=== PATIENT | male | born 1950 | race Caucasian/White ===

== ENCOUNTER → 2019-07-11 10:24 | Outpatient (BNVA) | payer MEDICARE, SELFPAY | PROVIDERS: Family Provider Family Medicine; PCP Family Medicine; Visit Provider Family Medicine | DX: R35.1 Nocturia (principal); Z13.6 Encounter for screening for cardiovascular disorders | CPT/HCPCS: 80053; 80061; 84153; 85025 ==

== ENCOUNTER → 2021-10-06 09:53 | Outpatient (BNVA) | payer MEDICARE, SELFPAY | PROVIDERS: Family Provider Family Medicine; PCP Family Medicine; Visit Provider Family Medicine | DX: Z13.6 Encounter for screening for cardiovascular disorders (principal); R35.1 Nocturia | CPT/HCPCS: 80053; 80061; 84153; 85025 ==

== ENCOUNTER 2022-01-11 10:03 | Emergency (ER) | payer MEDICARE, SELFPAY ==
[2022-01-11] VITALS (7 sets, daily range): BP systolic 110–133; BP diastolic 74–90; PULSE 59–84; RESP 14–18; TEMP 36.7; O2SAT 96–99; BMI 25.0
--- NOTE | 2022-01-11 10:27 | ECG_ITS ---
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 Measurements Intervals [place] Rate: 72 P: 61 IN: 172 QRS: 72 QRSD: 84 T: 74 QT: 324 QTc: 355 Interpretive Statements SINUS RHYTHM NONSPECIFIC T-WAVE ABNORMALITY INTERPRETATION BASED ON A DEFAULT AGE OF 40 YEARS No previous ECG available for comparison Electronically Signed On 01-11-2022 19:10:13 CDT by Puneet Baer M.D. [email or web address]
--- NOTE | 2022-01-11 10:41 | XRR_ITS ---
PROCEDURE INFORMATION: Exam: XR Chest Exam date and time: 01/11/2022 10:50 AM Age: 71 years old Clinical indication: Shortness of breath and other: N/v, light headed, cant stand; Additional info: Dyspnea/cough TECHNIQUE: Imaging protocol: Radiologic exam of the chest. Views: 1 view. COMPARISON: CT kidney stone [id number] 02/14/2017 2:09 AM FINDINGS: Lungs: The lung parenchyma is clear. Pleural spaces: No pneumothorax. No pleural effusion. Heart/Mediastinum: The cardiomediastinal silhouette is within normal limits. Bones/joints: Unremarkable. XR/XR chest 1V portable [id number] IMPRESSION: No acute cardiopulmonary abnormality.
--- NOTE | 2022-01-11 10:41 | PC.NURSE ---
Reports was making breakfast this morning when he began to feel lightheaded, weak, and short of breath. Denies chest pain. Reports similar occurrence last week on where he denies seeking medical treatment. Reports he does not have any past medical history and does not take any routine medications. Pt A&Ox4, lung sounds clear bilat, heart sounds normal, bowel sounds present, abdomen soft and nontender to palpation. Skin pink/warm/dry. Family reports pt has not had much hydration lately.
[2022-01-11 11:04] LABS: Basophils # 0.1 10^3/uL (0.0-0.1); Basophils % 1.2 %; Hematocrit 46.1 % (42.0-52.0); Lymphocytes # 5.3 10^3/uL (0.8-4.8); Lymphocytes % 57.4 %; Mean Corpuscular HGB Conc 34.7 g/dL (30.0-36.0); Mean Corpuscular Hemoglobin 31.4 pg (28.0-34.0); Mean Corpuscular Volume 90.6 fl (80-94); Mean Platelet Volume 9.6 fL (7.4-10.4); Monocytes # 0.9 10^3/uL (0.2-0.9); Monocytes % 9.8 %; Neutrophils # 2.88 10^3/uL (1.8-7.7); Neutrophils % 31.5 %; Nucleated Red Blood Cells % 0 %; Platelet Count 139 10^3/cmm (130-400); Red Blood Count 5.09 10^6/uL (4.1-5.3); Red Cell Distribution Width 12.1 % (12.1-15.1); White Blood Count 9.2 10^3/uL (4.0-10.0)
[2022-01-11 11:27] LABS: Alanine Aminotransferase 61 U/L (0-41); Alkaline Phosphatase 77 IU/L (40-130); Anion Gap 15.8 (5-19); Aspartate Amino Transferase 33 U/L (0-40); Blood Urea Nitrogen 15 mg/dL (8-23); Calcium 10.4 mg/dL (8.5-10.5); Carbon Dioxide 22 mmol/L (22-29); Chloride 106 mmol/L (98-107); Globulin 2.9 g/dL (1.3-4.6); Glucose 100 mg/dL (65-115); Osmolality Calculated 291 mOsm/kg (285-295); Potassium 3.8 mmol/L (3.5-5.1); Sodium 140 mmol/L (136-145); Total Bilirubin 0.8 mg/dL (0.15-1.2); Total Protein 6.9 g/dL (6.6-8.7)
[2022-01-11 11:32] LABS: Slide Review Slide Review Perform
[2022-01-11 11:48] LABS: Add Urine Microscopic? NO; Charge for UA Resulting for Rev
[2022-01-11 11:50] LABS: Bilirubin Urine Neg (Negative); Blood Urine Neg (Negative); Glucose Urine UA Norm (Normal); Ketones Urine Negative (Negative); Leukocyte Esterase Urine Negative (Negative); Nitrate Urine Negative (Negative); Protein Urine Neg (Negative); Urine Appearance Clear (CLEAR); Urine Color Dark Yellow (Yellow); Urobilinogen Urine Norm (Negative); pH Urine 5 (5-7)
--- NOTE | 2022-01-11 12:22 | W.ED.WEAKNES ---
HPI - Weakness General: Chief complaint: Weakness Stated complaint: sob, faint, trouble standing Time Seen by Provider: 01/11/22 10:09 Source: patient Mode of arrival: ambulatory History of Present Illness: 71-year-old male presents to the emergency room with complaint of generalized weakness feeling short of breath and faint at times. He is actually had a couple of episodes like this he will be standing for period of time he will get weak little short of breath lightheaded and dizzy and feel like he is going to pass out never completely lost consciousness and never gets any chest pain. Not had any vomiting or diarrhea with it. He has a history of rheumatoid arthritis but otherwise his evaluation is essentially negative his history is unremarkable he does not smoke or drink he does not have any history of heart disease he has never had any evaluation. MD Complaint: generalized weakness Onset (ago): hour(s) Duration: intermittent Severity: mild Relieving factors: none Exacerbating factors: none Associated symptoms: Denies chest pain, chills, confusion, melena, decreased appetite, diaphoresis, dysuria, easy bruising, fever(s), headache(s), myalgias, nausea, rash, short of breath, syncope or vomiting Review of Systems Const: Denies: fever(s), chills, fatigue, malaise or diaphoresis ENMT: Denies: throat pain, ear or mastoid pain, nasal discharge or nasal congestion Card: Reports: pre-syncope; Denies: chest pain, palpitations, edema or syncope Resp: Reports: dyspnea (Intermittent brief); Denies: productive cough or non-productive cough GI: Denies: abdominal pain, nausea, vomiting or melena : Denies: flank pain, difficulty urinating, dysuria, urinary frequency or urinary urgency Skin/Breast: Denies: rash or pruritus Neuro: Denies: headache(s) or confusion Moses/Lymph: Denies: easy bruising PFSH ED PFSH: Medical History Rheumatoid arthritis involving both hands with positive rheumatoid factor [place] spotted fever Surgical History H/O cataract extraction H/O thumb surgery Family History Sister Cancer colon Diabetes Father CAD (coronary artery disease) Social History Smoking and tobacco status: never smoked Alcohol intake: current Alcohol type: wine Physical Exam Const: COMMON NORMALS: no acute distress GENERAL APPEARANCE: cooperative and comfortable ORIENTATION/CONSCIOUSNESS: Yes awake, Yes oriented to person, Yes oriented to place and Yes oriented to time HENMT: COMMON NORMALS: normocephalic, atraumatic and hearing grossly normal bilaterally HEAD & SCALP: normocephalic and atraumatic Resp: COMMON NORMALS: normal respiratory effort, No retractions, No use of accessory muscles and clear to auscultation bilaterally AUSCULTATION: clear to auscultation bilaterally Cardio: COMMON NORMALS: regular rate, regular rhythm and No murmurs present (Cardio) RATE: regular rate RHYTHM: regular rhythm GI: COMMON NORMALS: Soft to palpation and No hepatosplenomegaly present AUSCULTATION: Yes normoactive bowel sounds PALPATION: Yes Soft to palpation, No Tenderness to palpation present (GI), No Guarding due to palpation present (GI) and Yes No hepatosplenomegaly present Extremity: COMMON NORMALS: normal to inspection, capillary refill normal, no clubbing, cyanosis or edema, no calf tenderness and no pedal edema Neuro: SENSORIUM/ORIENTATION: Yes oriented to person, Yes oriented to place and Yes oriented to time Skin: COMMON NORMALS: no rashes or lesions noted GENERAL SKIN EXAM: no rashes or lesions noted Course Vital Signs: Vital signs: Vital Signs Temperature 98.0 F 01/11/22 10:14 Pulse Rate 66 01/11/22 12:16 Respiratory Rate 18 01/11/22 12:16 Blood Pressure 120/82 01/11/22 12:16 Pulse Oximetry 96 01/11/22 12:16 Oxygen Delivery Me thod 01/11/22 10:14 MDM - Weakness Medical Decision Making Patient is asymptomatic this time he feels fine interestingly has had a couple of these episodes. He is not having any chest pain. EKG was unremarkable no acute ST changes noted may be some early LVH. Other labs unremarkable organ to go and discharge patient home set him up for a 48-hour Holter and an echocardiogram as well as an outpatient Lexiscan sestamibi stress test Medical Records I reviewed the patient's medical records. Lab Data I reviewed the patient's lab results. : 01/11/22 10:50 01/11/22 10:50 Radiology Impressions Chest X-Ray 01/11/22 10:41 IMPRESSION: No acute cardiopulmonary abnormality. Laboratory Results WBC 9.2 10^3/uL (4.0-10.0) 01/11/22 10:50 RBC 5.09 10^6/uL (4.1-5.3) 01/11/22 10:50 Hgb 16.0 g/dL (11.7-16.6) 01/11/22 10:50 Hct 46.1 % (42.0-52.0) 01/11/22 10:50 MCV 90.6 fl (80-94) 01/11/22 10:50 MCH 31.4 pg (28.0-34.0) 01/11/22 10:50 MCHC 34.7 g/dL (30.0-36.0) 01/11/22 10:50 RDW 12.1 % (12.1-15.1) 01/11/22 10:50 Plt Count 139 10^3/cmm (130-400) 01/11/22 10:50 MPV 9.6 fL (7.4-10.4) 01/11/22 10:50 Neut % (Auto) 31.5 % 01/11/22 10:50 Lymph % (Auto) 57.4 % 01/11/22 10:50 Piatt % (Auto) 9.8 % 01/11/22 10:50 Eos % (Auto) 0.0 % 01/11/22 10:50 Baso % (Auto) 1.2 % 01/11/22 10:50 Neut # (Auto) 2.88 10^3/uL (1.8-7.7) 01/11/22 10:50 Lymph # (Auto) 5.3 10^3/uL (0.8-4.8) H 01/11/22 10:50 Piatt # (Auto) 0.9 10^3/uL (0.2-0.9) 01/11/22 10:50 Eos # (Auto) 0.0 10^3/uL (0.0-0.8) 01/11/22 10:50 Baso # (Auto) 0.1 10^3/uL (0.0-0.1) 01/11/22 10:50 Nucleated RBC % (auto) 0 % 01/11/22 10:50 Nucleated RBCs # 0.0 /100WBC 01/11/22 10:50 Sodium 140 mmol/L (136-145) 01/11/22 10:50 Potassium 3.8 mmol/L (3.5-5.1) 01/11/22 10:50 Chloride 106 mmol/L (98-107) 01/11/22 10:50 Carbon Dioxide 22 mmol/L (22-29) 01/11/22 10:50 Anion Gap 15.8 (5-19) 01/11/22 10:50 BUN 15 mg/dL (8-23) 01/11/22 10:50 Creatinine 1.1 mg/dL (0.7-1.2) 01/11/22 10:50 GFR Calculation Not Reportable 01/11/22 10:50 Glucose 100 mg/dL (65-115) 01/11/22 10:50 Calculated Osmolality 291 mOsm/kg (285-295) 01/11/22 10:50 Calcium 10.4 mg/dL (8.5-10.5) 01/11/22 10:50 Total Bilirubin 0.8 mg/dL (0.15-1.2) 01/11/22 10:50 AST 33 U/L (0-40) 01/11/22 10:50 ALT 61 U/L (0-41) H 01/11/22 10:50 Alkaline Phosphatase 77 IU/L (40-130) 01/11/22 10:50 Troponin T Gen 5 ng/L 13 ng/L (0-15) 01/11/22 10:50 Total Protein 6.9 g/dL (6.6-8.7) 01/11/22 10:50 Albumin 4.0 g/dL (3.5-5.2) 01/11/22 10:50 Globulin 2.9 g/dL (1.3-4.6) 01/11/22 10:50 Urine Color Dark yellow (Yellow) 01/11/22 11:40 Urine Appearance Clear (CLEAR) 01/11/22 11:40 Urine pH 5 (5-7) 01/11/22 11:40 Ur Specific [place] 1.020 (1.005-1.030) 01/11/22 11:40 Urine Protein Neg (Negative) 01/11/22 11:40 Urine Glucose (UA) Norm (Normal) 01/11/22 11:40 Urine Ketones Negative (Negative) 01/11/22 11:40 Urine Blood Neg (Negative) 01/11/22 11:40 Urine Nitrate Negative (Negative) 01/11/22 11:40 Urine Bilirubin Neg (Negative) 01/11/22 11:40 Urine Urobilinogen Norm mg/dL (Negative) 01/11/22 11:40 Ur Leukocyte Esterase Negative (Negative) 01/11/22 11:40 Discharge Plan Discharge Patient Disposition: Home Clinical Impression: Pre-syncope Condition: Stable Prescriptions: New aspirin 81 mg tablet,delayed release (DR/EC) 81 mg PO DAILY Qty: 30 0RF Discharge Orders: Discharge ED (Routine); Ordered 01/11/22 Ordered By: Sumeet Gibbs Referrals: Argentina Izquierdo DO [Primary Care Provider] - Discharge Diet: Usual diet Discharge Activity: Limit activity as instructed Patient Instructions: Opioid Safety Activity Restrictions/Additional Instructions: Avoid exertional activity. Case management make arrangements for you to have an echocardiogram and a 24-hour Holter. 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
[2022-01-11 12:38] LABS: Troponin T (5th) Once 13 ng/L (0-15)
--- NOTE | 2022-01-14 08:13 | DCPLANNER ---
Addendum entered by Nanette Bae 02/27/22 12:42: Patient had an appointment for a halter monitor - patient did attend appointment. Original Note: fleet dispatch manager had message to schedule an out patient halter monitor. fleet dispatch manager faxed signed order to heart care, who will call patient with appointment information. fleet dispatch manager had message to schedule an out patient echo cardiogram and stress test for patient. fleet dispatch manager faxed a signed order to centralized scheduling, who will call patient with appointment information.
== END 2022-01-11 12:18 | disposition home or self-care (01) ==
PROVIDERS: Emergency Provider Family Medicine; PCP Family Medicine
DX: R55 Syncope and collapse (principal)
CPT/HCPCS: 71045; 80053; 81003; 84484; 85025; 93005; 99285

== ENCOUNTER → 2022-01-26 14:04 | Outpatient (BNVA) | payer MEDICARE, SELFPAY | PROVIDERS: PCP Family Medicine; Visit Provider Internal Medicine | DX: R55 Syncope and collapse (principal); I47.1 Supraventricular tachycardia; I49.1 Atrial premature depolarization; I49.3 Ventricular premature depolarization | CPT/HCPCS: 93225 ==

== ENCOUNTER → 2022-02-16 11:20 | Outpatient (BNVA) | payer MEDICARE, SELFPAY | PROVIDERS: PCP Family Medicine; Referring Provider Family Medicine; Visit Provider Internal Medicine | DX: M05.741 Rheumatoid arthritis with rheumatoid factor of right hand without organ or systems involvement (principal); M05.742 Rheumatoid arthritis with rheumatoid factor of left hand without organ or systems involvement; Z11.59 Encounter for screening for other viral diseases; Z11.1 Encounter for screening for respiratory tuberculosis | CPT/HCPCS: 80053; 85025; 85651; 86140; 86480; 86704; 86803; 87340; 99204 ==

== ENCOUNTER → 2022-03-10 15:17 | Outpatient (BNVA) | payer MEDICARE, SELFPAY | PROVIDERS: PCP Family Medicine; Visit Provider Internal Medicine | DX: M05.741 Rheumatoid arthritis with rheumatoid factor of right hand without organ or systems involvement (principal); M05.742 Rheumatoid arthritis with rheumatoid factor of left hand without organ or systems involvement | CPT/HCPCS: 99213; 99214 ==

== ENCOUNTER 2022-04-06 11:07 | Outpatient (CLI) | payer MEDICARE, SELFPAY ==
[2022-04-06 11:33] LABS: Basophils # 0.1 10^3/uL (0.0-0.1); Eosinophils % 0.1 %; Hematocrit 47.2 % (42.0-52.0); Hemoglobin 16.5 g/dL (11.7-16.6); Lymphocytes # 1.8 10^3/uL (0.8-4.8); Lymphocytes % 22.2 %; Mean Corpuscular Volume 94.4 fl (80-94); Mean Platelet Volume 9.1 fL (7.4-10.4); Monocytes # 0.6 10^3/uL (0.2-0.9); Monocytes % 7.5 %; Neutrophils # 5.44 10^3/uL (1.8-7.7); Neutrophils % 68.9 %; Nucleated Red Blood Cells % 0 %; Platelet Count 211 10^3/cmm (130-400); Red Cell Distribution Width 12.5 % (12.1-15.1); White Blood Count 7.9 10^3/uL (4.0-10.0)
[2022-04-06 11:54] LABS: Alanine Aminotransferase 33 U/L (0-41); Alkaline Phosphatase 82 U/L (40-130); Anion Gap 13.2 (5-19); Aspartate Amino Transferase 28 U/L (0-40); Blood Urea Nitrogen 13 mg/dL (8-23); Calcium 9.8 mg/dL (8.5-10.5); Carbon Dioxide 21 mmol/L (22-29); Chloride 107 mmol/L (98-107); Globulin 2.8 g/dL (1.3-4.6); Glucose 89 mg/dL (65-115); Osmolality Calculated 284 mOsm/kg (285-295); Potassium 4.2 mmol/L (3.5-5.1); Sodium 137 mmol/L (136-145); Total Bilirubin 0.3 mg/dL (0.15-1.2); Total Protein 6.8 g/dL (6.6-8.7)
== END 2022-04-06 11:08 | disposition home or self-care (01) ==
PROVIDERS: PCP Family Medicine; Visit Provider Internal Medicine
DX: M05.741 Rheumatoid arthritis with rheumatoid factor of right hand without organ or systems involvement (principal); M05.742 Rheumatoid arthritis with rheumatoid factor of left hand without organ or systems involvement
CPT/HCPCS: 36415; 80053; 85025

== ENCOUNTER 2022-06-01 10:20 | Outpatient (CLI) | payer MEDICARE, SELFPAY ==
[2022-06-01 11:44] LABS: Basophils # 0.1 10^3/uL (0.0-0.1); Basophils % 1.5 %; Hematocrit 50.7 % (42.0-52.0); Lymphocytes # 2.4 10^3/uL (0.8-4.8); Lymphocytes % 35.7 %; Mean Corpuscular HGB Conc 33.5 g/dL (30.0-36.0); Mean Corpuscular Hemoglobin 32.1 pg (28.0-34.0); Mean Corpuscular Volume 95.7 fl (80-94); Mean Platelet Volume 9.5 fL (7.4-10.4); Monocytes # 0.6 10^3/uL (0.2-0.9); Monocytes % 8.5 %; Neutrophils # 3.56 10^3/uL (1.8-7.7); Neutrophils % 54.1 %; Nucleated Red Blood Cells % 0 %; Platelet Count 227 10^3/cmm (130-400); White Blood Count 6.6 10^3/uL (4.0-10.0)
[2022-06-01 12:05] LABS: Alanine Aminotransferase 27 U/L (0-41); Albumin Level 3.8 g/dL (3.5-5.2); Alkaline Phosphatase 90 U/L (40-130); Blood Urea Nitrogen 16 mg/dL (8-23); Calcium 10.2 mg/dL (8.5-10.5); Carbon Dioxide 24 mmol/L (22-29); Chloride 104 mmol/L (98-107); Globulin 3.2 g/dL (1.3-4.6); Glucose 106 mg/dL (65-115); Osmolality Calculated 284 mOsm/kg (285-295); Sodium 136 mmol/L (136-145); Total Bilirubin 0.6 mg/dL (0.15-1.2)
[2022-06-01 12:09] LABS: Aspartate Amino Transferase 27 U/L (0-40)
== END 2022-06-01 10:21 | disposition home or self-care (01) ==
PROVIDERS: PCP Family Medicine; Visit Provider Internal Medicine
DX: M05.741 Rheumatoid arthritis with rheumatoid factor of right hand without organ or systems involvement (principal); M05.742 Rheumatoid arthritis with rheumatoid factor of left hand without organ or systems involvement; R35.1 Nocturia
CPT/HCPCS: 80053; 85025

== ENCOUNTER → 2022-06-12 09:59 | Outpatient (BNVA) | payer MEDICARE, SELFPAY | PROVIDERS: PCP Family Medicine; Visit Provider Internal Medicine | DX: M05.741 Rheumatoid arthritis with rheumatoid factor of right hand without organ or systems involvement (principal); M05.742 Rheumatoid arthritis with rheumatoid factor of left hand without organ or systems involvement; Z79.899 Other long term (current) drug therapy | CPT/HCPCS: 99213 ==

== ENCOUNTER 2022-09-02 08:26 | Outpatient (CLI) | payer MEDICARE, SELFPAY ==
[2022-09-02 08:59] LABS: Basophils # 0.1 10^3/uL (0.0-0.1); Basophils % 1.5 %; Hematocrit 48.3 % (42.0-52.0); Hemoglobin 16.5 g/dL (11.7-16.6); Lymphocytes % 36.5 %; Mean Corpuscular HGB Conc 34.2 g/dL (30.0-36.0); Mean Corpuscular Volume 93.6 fl (80-94); Mean Platelet Volume 9.3 fL (7.4-10.4); Monocytes # 0.7 10^3/uL (0.2-0.9); Neutrophils # 4.25 10^3/uL (1.8-7.7); Neutrophils % 52.6 %; Nucleated Red Blood Cells % 0 %; Platelet Count 221 10^3/cmm (130-400); Red Blood Count 5.16 10^6/uL (4.1-5.3); Red Cell Distribution Width 12.2 % (12.1-15.1); White Blood Count 8.1 10^3/uL (4.0-10.0)
[2022-09-02 09:03] LABS: Erythrocyte Sedimentation Rate 7 mm/hr (0-10)
[2022-09-02 09:23] LABS: Alanine Aminotransferase 18 U/L (0-41); Alkaline Phosphatase 68 U/L (40-130); Anion Gap 12.5 (5-19); Aspartate Amino Transferase 19 U/L (0-40); Blood Urea Nitrogen 12 mg/dL (8-23); Carbon Dioxide 25 mmol/L (22-29); Chloride 109 mmol/L (98-107); Globulin 2.8 g/dL (1.3-4.6); Glucose 78 mg/dL (65-115); Osmolality Calculated 293 mOsm/kg (285-295); Potassium 4.5 mmol/L (3.5-5.1); Sodium 142 mmol/L (136-145); Total Bilirubin 0.6 mg/dL (0.15-1.2); Total Protein 6.8 g/dL (6.6-8.7)
== END 2022-09-02 08:27 | disposition home or self-care (01) ==
LOC: LAB 08:31
PROVIDERS: Internal Medicine; PCP Family Medicine; Visit Provider Urology
DX: M05.741 Rheumatoid arthritis with rheumatoid factor of right hand without organ or systems involvement (principal); M05.742 Rheumatoid arthritis with rheumatoid factor of left hand without organ or systems involvement
CPT/HCPCS: 36415; 80053; 85025; 85651; 86140

== ENCOUNTER → 2022-09-15 12:58 | Outpatient (BNVA) | payer MEDICARE, SELFPAY | PROVIDERS: PCP Family Medicine; Visit Provider Internal Medicine | DX: M05.741 Rheumatoid arthritis with rheumatoid factor of right hand without organ or systems involvement (principal); M05.742 Rheumatoid arthritis with rheumatoid factor of left hand without organ or systems involvement; Z79.899 Other long term (current) drug therapy | CPT/HCPCS: 99214 ==

== ENCOUNTER 2023-01-14 08:58 | Outpatient (CLI) | payer MEDICARE, SELFPAY ==
[2023-01-14 09:20] LABS: Erythrocyte Sedimentation Rate 10 mm/hr (0-10)
[2023-01-14 09:24] LABS: Basophils # 0.1 10^3/uL (0.0-0.1); Basophils % 1.1 %; Hematocrit 49.3 % (42.0-52.0); Hemoglobin 16.9 g/dL (11.7-16.6); Lymphocytes # 3.5 10^3/uL (0.8-4.8); Lymphocytes % 39.1 %; Mean Corpuscular HGB Conc 34.3 g/dL (30.0-36.0); Mean Corpuscular Hemoglobin 32.3 pg (28.0-34.0); Mean Corpuscular Volume 94.3 fl (80-94); Mean Platelet Volume 9.4 fL (7.4-10.4); Monocytes # 0.6 10^3/uL (0.2-0.9); Monocytes % 6.7 %; Neutrophils # 4.71 10^3/uL (1.8-7.7); Neutrophils % 52.9 %; Nucleated Red Blood Cells % 0 %; Platelet Count 194 10^3/cmm (130-400); Red Blood Count 5.23 10^6/uL (4.1-5.3); Red Cell Distribution Width 12.2 % (12.1-15.1); White Blood Count 8.9 10^3/uL (4.0-10.0)
[2023-01-14 09:39] LABS: Alanine Aminotransferase 21 U/L (0-41); Alkaline Phosphatase 66 U/L (40-130); Anion Gap 14.1 (5-19); Aspartate Amino Transferase 24 U/L (0-40); Blood Urea Nitrogen 14 mg/dL (8-23); Calcium 10.1 mg/dL (8.5-10.5); Carbon Dioxide 22 mmol/L (22-29); Chloride 107 mmol/L (98-107); Glucose 94 mg/dL (65-115); Osmolality Calculated 288 mOsm/kg (285-295); Potassium 4.1 mmol/L (3.5-5.1); Sodium 139 mmol/L (136-145); Total Bilirubin 0.7 mg/dL (0.15-1.2)
== END 2023-01-14 08:59 | disposition home or self-care (01) ==
PROVIDERS: PCP Family Medicine; Visit Provider Internal Medicine Rheumatology
DX: M05.741 Rheumatoid arthritis with rheumatoid factor of right hand without organ or systems involvement (principal); M05.742 Rheumatoid arthritis with rheumatoid factor of left hand without organ or systems involvement; Z79.899 Other long term (current) drug therapy
CPT/HCPCS: 36415; 80053; 85025; 85651; 86140

== ENCOUNTER → 2023-01-19 14:56 | Outpatient (BNVA) | payer MEDICARE, SELFPAY | PROVIDERS: PCP Family Medicine; Visit Provider Internal Medicine | DX: M05.741 Rheumatoid arthritis with rheumatoid factor of right hand without organ or systems involvement (principal); M05.742 Rheumatoid arthritis with rheumatoid factor of left hand without organ or systems involvement; Z79.899 Other long term (current) drug therapy | CPT/HCPCS: 99214 ==

== ENCOUNTER 2023-02-04 09:36 | Outpatient (CLI) | payer MEDICARE, SELFPAY ==
[2023-02-04 10:28] LABS: Calcium 10.1 mg/dL (8.5-10.5)
[2023-02-04 10:36] LABS: Parathyroid Hormone 41.1 pg/mL (15-65)
[2023-02-04 10:46] LABS: 25 Hydroxy Vitamin D 29 ng/mL (30-100); Ferritin 331 ng/mL (30-400); Iron 109 ug/dL (59-158); Magnesium 2.3 mg/dL (1.7-2.3); Phosphorus 2.8 mg/dL (2.5-4.5); Thyroid Stimulating Hormone 1.44 uIU/mL (0.27-4.20); Uric Acid 7.1 mg/dL (3.4-7.0)
== END 2023-02-04 09:37 | disposition home or self-care (01) ==
PROVIDERS: PCP Family Medicine; Visit Provider Internal Medicine
DX: M05.741 Rheumatoid arthritis with rheumatoid factor of right hand without organ or systems involvement (principal); M05.742 Rheumatoid arthritis with rheumatoid factor of left hand without organ or systems involvement
CPT/HCPCS: 36415; 82306; 82310; 82728; 83540; 83735; 83970; 84100; 84443; 84550

== ENCOUNTER → 2023-06-22 09:31 | Outpatient (BNVA) | payer MEDICARE, SELFPAY | PROVIDERS: PCP Family Medicine; Visit Provider Internal Medicine | DX: Z79.899 Other long term (current) drug therapy (principal); M05.741 Rheumatoid arthritis with rheumatoid factor of right hand without organ or systems involvement; M05.742 Rheumatoid arthritis with rheumatoid factor of left hand without organ or systems involvement | CPT/HCPCS: 36415; 80053; 83520; 84550; 85025; 85651; 86140; 99214 ==

== ENCOUNTER → 2023-12-15 09:38 | Outpatient (BNVA) | payer MEDICARE, SELFPAY | PROVIDERS: PCP Family Medicine; Visit Provider Internal Medicine Rheumatology | DX: M05.741 Rheumatoid arthritis with rheumatoid factor of right hand without organ or systems involvement (principal); M05.742 Rheumatoid arthritis with rheumatoid factor of left hand without organ or systems involvement; Z79.899 Other long term (current) drug therapy; Z71.85 Encounter for immunization safety counseling; Z11.1 Encounter for screening for respiratory tuberculosis; Z11.59 Encounter for screening for other viral diseases | CPT/HCPCS: 36415; 80076; 82565; 85025; 85651; 86140; 86480; 99214 ==

== ENCOUNTER → 2024-05-01 09:22 | Outpatient (BNVA) | payer MEDICARE, SELFPAY | PROVIDERS: PCP Family Medicine; Visit Provider Internal Medicine Rheumatology | DX: M05.741 Rheumatoid arthritis with rheumatoid factor of right hand without organ or systems involvement (principal); M05.742 Rheumatoid arthritis with rheumatoid factor of left hand without organ or systems involvement; Z79.899 Other long term (current) drug therapy; Z71.85 Encounter for immunization safety counseling | CPT/HCPCS: 99214 ==

== ENCOUNTER 2024-08-17 09:29 | Outpatient (CLI) | payer MEDICARE, SELFPAY ==
[2024-08-17 09:43] LABS: Basophils # 0.1 10^3/uL (0.0-0.1); Basophils % 0.8 %; Eosinophils # 0.1 10^3/uL (0.0-0.8); Hematocrit 48.7 % (37-53); Lymphocytes % 33.9 %; Mean Corpuscular HGB Conc 34.1 g/dL (30-55); Mean Corpuscular Hemoglobin 32.6 pg (27-33); Mean Corpuscular Volume 95.7 fl (82-101); Mean Platelet Volume 9.1 fL (7.4-10.4); Monocytes # 0.6 10^3/uL (0.2-0.9); Monocytes % 9.4 %; Neutrophils # 3.19 10^3/uL (1.8-7.7); Neutrophils % 53.4 %; Nucleated Red Blood Cells % 0 %; Platelet Count 205 10^3/cmm (157-399); Red Blood Count 5.09 10^6/uL (3.85-5.65); Red Cell Distribution Width 12.2 % (12.1-15.1); White Blood Count 5.98 10^3/uL (3.29-11.43)
[2024-08-17 10:00] LABS: Alanine Aminotransferase 36 U/L (0-41); Albumin Level 4.5 g/dL (3.5-5.2); Alkaline Phosphatase 62 U/L (40-130); Aspartate Amino Transferase 39 U/L (0-40); Globulin 2.6 g/dL (1.3-4.6); Total Bilirubin 0.6 mg/dL (0.15-1.2); Total Protein 7.1 g/dL (6.6-8.7)
[2024-08-17 10:11] LABS: Erythrocyte Sedimentation Rate < 1 mm/hr (0-10)
== END 2024-08-17 09:30 | disposition home or self-care (01) ==
PROVIDERS: PCP Internal Medicine; Visit Provider Internal Medicine Rheumatology
DX: Z79.899 Other long term (current) drug therapy (principal)
CPT/HCPCS: 36415; 80076; 82565; 85025; 85651; 86140

== ENCOUNTER → 2024-08-28 10:17 | Outpatient (BNVA) | payer MEDICARE, SELFPAY | PROVIDERS: PCP Internal Medicine; Visit Provider Internal Medicine Rheumatology | DX: M05.741 Rheumatoid arthritis with rheumatoid factor of right hand without organ or systems involvement (principal); M05.742 Rheumatoid arthritis with rheumatoid factor of left hand without organ or systems involvement; Z79.899 Other long term (current) drug therapy; Z71.85 Encounter for immunization safety counseling | CPT/HCPCS: 99214 ==

== ENCOUNTER 2024-09-05 06:54 | Outpatient (CLI) | payer MEDICARE, SELFPAY ==
[2024-09-05 07:45] LABS: Blood Urea Nitrogen 15 mg/dL (8-23)
== END 2024-09-05 06:55 | disposition home or self-care (01) ==
LOC: LAB 06:57
PROVIDERS: PCP Internal Medicine; Visit Provider Internal Medicine Rheumatology
DX: Z79.899 Other long term (current) drug therapy (principal); R79.89 Other specified abnormal findings of blood chemistry
CPT/HCPCS: 36415; 82565; 84520

== ENCOUNTER → 2025-02-26 09:40 | Outpatient (BNVA) | payer MEDICARE, SELFPAY | PROVIDERS: PCP Internal Medicine; Visit Provider Internal Medicine Rheumatology | DX: M05.741 Rheumatoid arthritis with rheumatoid factor of right hand without organ or systems involvement (principal); M05.742 Rheumatoid arthritis with rheumatoid factor of left hand without organ or systems involvement; Z71.85 Encounter for immunization safety counseling; Z79.899 Other long term (current) drug therapy | CPT/HCPCS: 36415; 80076; 82306; 82565; 85025; 85651; 86140; 86480; 99214 ==